=== PATIENT | male | born 1990 | race Two or more races ===

== ENCOUNTER 2017-11-09 21:06 | Emergency (ER) | payer BC ==
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
[2017-11-09] MEDS ORDERED: Lidocaine 1% 20 ML MDV INJECT ONE (22:29)
[2017-11-09] MEDS ORDERED: Lidocaine 1% 20 ML MDV ONE (22:30)
--- NOTE | 2017-11-11 11:53 | CR ---
EXAM DATE: 11/09/17 PATIENT'S AGE: 27 Patient: IGGY NOVAK Facility: [place], [place] Site . Site : 1992 Study: XRay Extremity Left hand [id number]/[id number] 9:46:23 PM Ordering Physician: Doctor Flowers Final Report: Indication: Pain, fishing pellet in hand Technique: Two views left hand Comparison: None Findings: Bones: Alignment is normal. No fractures or bone lesions. Joint spaces: Unremarkable. Soft tissues: There is a 0.6 x 0.4 cm metallic foreign body within the volar soft tissues of the hand at the level of the 3rd proximal phalanx. Impression: Metallic foreign body within the soft tissues of the 3rd finger. No fracture or subluxation. Dictated by Sylvie Reese MD @ Nov 09 2017 10:30PM (Electronic Signature) Report Signed by Proxy. SUSANA
== END 2017-11-09 23:30 | disposition home or self-care (01) ==
LOC: MW.ED 21:06
DX: S61.442A Puncture wound with foreign body of left hand, initial encounter (principal); W34.010A Accidental discharge of airgun, initial encounter; Y93.89 Activity, other specified
CPT/HCPCS: 73120-26-LT; 73120-LT; 99283

== ENCOUNTER 2018-11-04 21:34 | Emergency (ER) | payer BC ==
--- NOTE | 2018-11-04 22:03 | EDM.PDOC ---
ED HPI GENERAL MEDICAL PROBLEM - General Chief Complaint: ENT Problem Stated Complaint: PAIN & HEARING IN LT EAR Time Seen by Provider: 11/04/18 22:00 Source of Information: Reports: Patient - History of Present Illness INITIAL COMMENTS - FREE TEXT/NARRATIVE: HISTORY AND PHYSICAL: History of present illness: []Patient presents with hearing loss and discomfort in the left ear after cleaning his ears no actual pain is more of an aware sensation No other symptoms such as fever nausea vomiting diarrhea constipation chest pain shortness breath headache dizziness palpitation about a urine symptoms Review of systems: As per history of present illness and below otherwise all systems reviewed and negative. Past medical history: As per history of present illness and as reviewed below otherwise noncontributory. Surgical history: As per history of present illness and as reviewed below otherwise noncontributory. Social history: No reported history of drug or alcohol abuse. Family history: As per history of present illness and as reviewed below otherwise noncontributory. Physical exam: HEENT: Atraumatic, normocephalic, pupils reactive, negative for conjunctival pallor or scleral icterus, mucous membranes moist, throat clear, neck supple, nontender, trachea midline. Her canal is occluded with cerumen Lungs: Clear to auscultation, breath sounds equal bilaterally, chest nontender. Heart: S1S2, regular, negative for clicks, rubs, or JVD. Abdomen: Soft, nondistended, nontender. Negative for masses or hepatosplenomegaly. Negative for costovertebral tenderness. Pelvis: Stable nontender. Genitourinary: Deferred. Rectal: Deferred. Extremities: Atraumatic, negative for cords or calf pain. Neurovascular unremarkable. Neuro: Awake, alert, oriented. Cranial nerves II through XII unremarkable. Cerebellum unremarkable. Motor and sensory unremarkable throughout. Exam nonfocal. Diagnostics: [] Therapeutics: debrox drops] Impression: []Left ear canal occlusion Definitive disposition and diagnosis as appropriate pending reevaluation and review of above. left ear Pain Score (Numeric/FACES): 5 - Related Data Allergies Allergy/AdvReac Type Severity Reaction Status Date / Time No Known Allergies Allergy Verified 11/04/18 21:48 Home Meds: Home Meds . [No Known Home Meds] 11/09/17 [History] Past Medical History - Past Health History Medical/Surgical History: Denies Medical/Surgical History HEENT History: Reports: None Cardiovascular History: Reports: None Respiratory History: Reports: None Gastrointestinal History: Reports: None Genitourinary History: Reports: None Musculoskeletal History: Reports: None Neurological History: Reports: None Psychiatric History: Reports: Bipolar Endocrine/Metabolic History: Reports: None Hematologic History: Reports: None Immunologic History: Reports: None Oncologic (Cancer) History: Reports: None Dermatologic History: Reports: None - Infectious Disease History Infectious Disease History: Reports: None - Past Surgical History Head Surgeries/Procedures: Reports: None Social & Family History - Family History Family Medical History: Noncontributory - Tobacco Use Smoking Status *Q: Never Smoker - Caffeine Use Caffeine Use: Reports: Energy Drinks - Recreational Drug Use Recreational Drug Use: No ED ROS GENERAL - Review of Systems Review Of Systems: See Below ED EXAM, GENERAL - Physical Exam Exam: See Below Course - Vital Signs Last Recorded V/S: Last Vital Signs Temp 97.1 F 11/04/18 21:48 Pulse 90 11/04/18 21:48 Resp 18 11/04/18 21:48 BP 132/83 11/04/18 21:48 Pulse Ox 98 11/04/18 21:48 Departure - Departure Time of Disposition: 22:01 Disposition: Home, Self-Care 01 Condition: Good Clinical Impression: Cerumen impaction - Discharge Information Referrals: PCP,None [Primary Care Provider] - Additional Instructions: Debrocs/docusate drops as discussed return if symptoms persist or worsen follow up with primary care as needed [facility] [address] [place] [address] The following information is given to patients seen in the emergency department who are being discharged to home. This information is to outline your options for follow-up care. We provide all patients seen in our emergency department with a follow-up referral. The need for follow-up, as well as the timing and circumstances, are variable depending upon the specifics of your emergency department visit. If you don't have a primary care physician on staff, we will provide you with a referral. We always advise you to contact your personal physician following an emergency department visit to inform them of the circumstance of the visit and for follow-up with them and/or the need for any referrals to a consulting specialist. The emergency department will also refer you to a specialist when appropriate. This referral assures that you have the opportunity for follow-up care with a specialist. All of these measure are taken in an effort to provide you with optimal care, which includes your follow-up. Under all circumstances we always encourage you to contact your private physician who remains a resource for coordinating your care. When calling for follow-up care, please make the office aware that this follow-up is from your recent emergency room visit. If for any reason you are refused follow-up, please contact the [facility] emergency department at and asked to speak to the emergency department charge nurse.
== END 2018-11-04 22:09 | disposition home or self-care (01) ==
LOC: MW.ED 21:34
DX: H61.22 Impacted cerumen, left ear (principal)
CPT/HCPCS: 99282

== ENCOUNTER 2021-01-15 15:52 | Emergency (ER) | payer BC ==
[2021-01-15] MEDS ORDERED: Sodium Chloride 0.9% 10 ML Syringe FLUSH PRN (16:44)
[2021-01-15] MEDS ORDERED: Sodium Chloride 0.9% 2.5 ML Syringe FLUSH PRN (16:44)
[2021-01-15 17:35] LABS: BLOOD UREA NITROGEN,BUN 11 mg/dL (7.0-18.0); CARBON DIOXIDE,CO2 26.1 mmol/L (21.0-32.0); CHLORIDE,CL 103 mmol/L (98-107); GLUCOSE RANDOM 85 mg/dL (74-106); LIPASE 118 U/L (73-393); POTASSIUM,K 3.7 mmol/L (3.5-5.1); SODIUM,NA 140 mmol/L (136-148)
[2021-01-15] MEDS ORDERED: Iopamidol 755 MG/ML 500 ML Multipack Bottle IVPUSH ONE (18:05)
--- NOTE | 2021-01-15 19:10 | CT ---
For Patients: As a result of the Century Cures Act, medical imaging exams and procedure reports are released immediately into your electronic medical record. You may view this report before your referring provider. If you have questions, please contact your health care provider. Indication: Umbilical pain for 1 week. Painful urination Technique: Contrast enhanced CT abdomen and pelvis with 100 mL Isovue 370 Comparison: No comparison Findings: Heart normal. Possible mildly enlarged/prominent right hilar and subcarinal lymph nodes only partially seen. There is no pericardial effusion. One centimeters circumscribed nodule anterior right middle lobe with central tiny density. This probably reflects a granuloma there is adjacent tiny micro nodules which this could be related to granulomatous process. Minimal ground-glass opacities seen near the right hilum that is only partially seen on the very 1st image. Mild right pleural thickening series 201, image 6. Fatty liver. Gallbladder pancreas adrenal glands spleen appears unremarkable normal caliber abdominal aorta. Symmetric enhancement both kidneys no hydronephrosis. Small fat containing umbilical hernia. Normal appendix. Urinary bladder unremarkable. Fat containing inguinal hernias. Prostate gland unremarkable urinary bladder unremarkable. The bowel appears unremarkable. No suspicious bony lesions. Impression: 1. No acute findings in the abdomen or pelvis. Normal appendix. Kidneys appear unremarkable. 2. Circumscribed one centimeter nodule anterior right middle lobe with a tiny density centrally with adjacent tiny micro nodules this probably reflects a developing granuloma/granulomatous process follow-up is recommended. Additionally possible minimal ground-glass opacity seen near the right hilum this is only partially seen on the very 1st image could be related to infectious inflammatory process. There is possible prominent/mildly enlarged subcarinal right hilar lymph node that is only partially seen. Would recommend follow-up chest CT imaging. Please note that all CT scans at this facility use dose modulation, iterative reconstruction, and/or weight-based dosing when appropriate to reduce radiation dose to as low as reasonably achievable. Dictated by Grace Messer MD @ 01/15/2021 7:01:32 PM (Electronically Signed)
[2021-01-15] MEDS ORDERED: cefTRIAXone 1 GM in Premix Bag 1 BAG IV ONE (19:25)
--- NOTE | 2021-01-15 19:31 | EDM.PDOC ---
ED HPI GENERAL MEDICAL PROBLEM - General Chief Complaint: Genitourinary Problem Stated Complaint: ABDOMINA; PAIN MAYBE UTI Time Seen by Provider: 01/15/21 16:06 Source of Information: Reports: Patient History Limitations: Reports: No Limitations - History of Present Illness INITIAL COMMENTS - FREE TEXT/NARRATIVE: HISTORY AND PHYSICAL: History of present illness: Patient is a 30-year-old male who presents to the ED today with concern of lower abdominal pain and urinary frequency with only urinating small amounts over the past several days. Patient states that the last time he ever had symptoms like this, he was diagnosed with gonorrhea. However, patient states that at that time, he was also having penile drainage which she is not having today. Patient states that he is confused because he is in a 4-year marriage in a monogamous relationship and states that he has not been unfaithful and does not believe his to be unfaithful but states that the symptoms are somewhat similar. Patient states that he did not have abdominal pain when he had gonorrhea but did have a urinary frequency which is why he was concerned. Patient states the only partner he has had in 4 years is his . Patient states that he has had the symptoms for approximately 1 week and states that they have not worsened over a week just have not improved. Patient denies any abdominal surgeries or any other health history. Patient denies fever, chills, chest pain, shortness of breath, or cough. Denies headache, neck stiff ness, change in vision, syncope, or near syncope. Denies nausea, vomiting, diarrhea, constipation, or dysuria. Has not noted any blood in urine or stool. Patient has been eating and drinking appropriately. Patient denies any testicular or scrotal tenderness or penile drainage. Review of systems: As per history of present illness and below otherwise all systems reviewed and negative. Past medical history: As per history of present illness and as reviewed below otherwise noncontributory. Surgical history: As per history of present illness and as reviewed below otherwise noncontributory. Social history: See social history for further information Family history: As per history of present illness and as reviewed below otherwise noncontributory. Physical exam: General: Patient is alert, oriented, and in no acute distress. Patient laying comfortably on exam table. Vitals stable and reviewed by me. HEENT: Atraumatic, normocephalic, pupils equal and reactive bilaterally, negative for conjunctival pallor or scleral icterus, mucous membranes moist, TMs normal bilaterally, throat clear, neck supple, nontender, trachea midline. No drooling or trismus noted. No meningeal signs. No hot potato voice noted. Lungs: Clear to auscultation, breath sounds equal bilaterally, chest nontender. Heart: S1S2, regular rate and rhythm without overt murmur Abdomen: Soft, nondistended, moderate right and left lower quadrant tenderness with guarding, negative rebound, negative Weiss sign. Negative for masses or hepatosplenomegaly. Negative for costovertebral tenderness. Pelvis: Stable nontender. Genitourinary: Deferred. Rectal: Deferred. Skin: Intact, warm, dry. No lesions or rashes noted. Extremities: Atraumatic, negative for cords or calf pain. Neurovascular unremarkable. Neuro: Awake, alert, oriented. Cranial nerves II through XII unremarkable. Cerebellum unremarkable. Motor and sensory unremarkable throughout. Exam nonfocal. Notes: Patient is a 30-year-old male who presents emergency room today secondary to lower abdominal pain and urinary frequency x1 week. Upon arrival to the ED, patient is vitally stable and well-appearing on exam but does have moderate right and left lower quadrant tenderness of the abdomen with guarding on exam. Will obtain urinalysis, routine lab work with intention of obtaining abdominal pelvic CT scan with contrast. CBC shows a mild leukocytosis of 11.96, otherwise mild derangements of CBC unremarkable. CMP mild derangements unremarkable. Lipase within normal limits. Urinalysis shows 0-2 red blood cells, 0-2 white blood cells, rare bacteria, trace leukocyte esterase. Gonorrhea and Chlamydia pending as this is a send out lab. Abdominal pelvic CT scan with contrast shows no acute findings in the abdomen or pelvis. Normal appendix. Kidneys unremarkable. Circumscribed 1 cm nodule anterior right middle lobe with a tiny density centrally with adjacent tiny micronodules this probably reflects a developing granuloma process follow-up recommended. Possible minimal groundglass opacity seen near the right hilum, this is only partially seen which could be infectious or inflammatory. This is possibly prominent/mildly enlarged subcarinal right hilar lymph node that is only partially seen. Patient does not express any chest pain, shortness of breath, or cough today. Incidental findings of imaging today discussed with patient and importance to have this evaluated further by his primary care provider. Upon reevaluation of patient, he remains vitally stable and comfortable throughout stay in ED. I did offer to treat patient empirically for possible gonorrhea or chlamydia infection given this is a send out lab and his stated symptoms resembling prior gonorrhea infection. He is agreeable to treatment for possible STD. Strict return precautions thoroughly discussed with patient. Discussed importance for follow-up with a primary care provider. Voices understanding and is agreeable to plan of care. Denies any further questions or concerns at this time. Diagnostics: CBC, CMP, UA, lipase, abdominal pelvic CT with contrast, gonorrhea and chlamydia Therapeutics: Rocephin Prescription: Doxycycline Impression: Lower abdominal pain, unspecified Urinary frequency Plan: 1. Take medication as prescribed. You can alternate ibuprofen and Tylenol as directed for pain and discomfort. 2. Follow-up with your primary care provider as discussed. Return to the ED as needed and as discussed. 3. Refrain from sexual activity until all labs today have resulted. You can receive full STD testing with a primary care provider or at the [facility]. Definitive disposition and diagnosis as appropriate pending reevaluation and review of above. - Related Data Allergies Allergy/AdvReac Type Severity Reaction Status Date / Time No Known Allergies Allergy Verified 01/15/21 16:20 Home Meds: Home Meds Doxycycline [Vibramycin] 100 mg PO BID 7 Days #14 cap 01/15/21 [Rx] Past Medical History - Past Health History Medical/Surgical History: Denies Medical/Surgical History HEENT History: Reports: None Cardiovascular History: Reports: None Respiratory History: Reports: None Gastrointestinal History: Reports: None Genitourinary History: Reports: None Musculoskeletal History: Reports: None Neurological History: Reports: None Psychiatric History: Reports: Bipolar Endocrine/Metabolic History: Reports: None Hematologic History: Reports: None Immunologic History: Reports: None Oncologic (Cancer) History: Reports: None Dermatologic History: Reports: None - Infectious Disease History Infectious Disease History: Reports: None - Past Surgical History Head Surgeries/Procedures: Reports: None Social & Family History - Family History Family Medical History: No Pertinent Family History - Tobacco Use Tobacco Use Status *Q: Never Tobacco User - Caffeine Use Caffeine Use: Reports: Energy Drinks - Recreational Drug Use Recreational Drug Use: No ED ROS GENERAL - Review of Systems Review Of Systems: Comprehensive ROS is negative, except as noted in HPI. ED EXAM, GENERAL - Physical Exam Exam: See Below (See dictation) Course - Vital Signs Last Recorded V/S: Last Vital Signs Temp 98 F 01/15/21 16:16 Pulse 79 01/15/21 19:42 Resp 18 01/15/21 19:42 BP 132/75 01/15/21 19:42 Pulse Ox 97 01/15/21 19:42 - Orders/Labs/Meds Orders: Active Orders 24 hr Category Date Time Status CHLAMYDIA AND GONORRHEA BY TMA Stat Lab 01/15/21 16:14 Received CULTURE URINE [MREF] Stat Lab 01/15/21 19:25 Received Saline Lock Insert [OM.PC] Stat Oth 01/15/21 16:44 Ordered Labs: Laboratory Tests 01/15/21 01/15/21 01/15/21 Range/Units 16:14 17:01 17:01 WBC 11.96 H (4.0-11.0) K/uL RBC 5.14 (4.50-5.90) M/uL Hgb 14.5 (13.0-17.0) g/dL Hct 42.4 (38.0-50.0) % MCV 82.5 (80.0-98.0) fL MCH 28.2 (27.0-32.0) pg MCHC 34.2 (31.0-37.0) g/dL RDW Std Deviation 42.1 (28.0-62.0) fl RDW Coeff of Robbin 14 (11.0-15.0) % Plt Count 255 (150-400) K/uL MPV 10.70 (7.40-12.00) fL Neut % (Auto) 64.5 (48.0-80.0) % Lymph % (Auto) 28.5 (16.0-40.0) % [place] % (Auto) 5.9 (0.0-15.0) % Eos % (Auto) 0.8 (0.0-7.0) % Baso % (Auto) 0.3 (0.0-1.5) % Neut # (Auto) 7.7 H (1.4-5.7) K/uL Lymph # (Auto) 3.4 H (0.6-2.4) K/uL [place] # (Auto) 0.7 (0.0-0.8) K/uL Eos # (Auto) 0.1 (0.0-0.7) K/uL Baso # (Auto) 0.0 (0.0-0.1) K/uL Nucleated RBC % 0.0 /100WBC Nucleated RBCs # 0 K/uL Sodium 140 (136-148) mmol/L Potassium 3.7 (3.5-5.1) mmol/L Chloride 103 (98-107) mmol/L Carbon Dioxide 26.1 (21.0-32.0) mmol/L BUN 11 (7.0-18.0) mg/dL Creatinine 1.1 (0.8-1.3) mg/dL Est Cr Clr Drug Dosing 106.48 mL/min Estimated GFR (MDRD) > 60.0 ml/min Glucose 85 (74-106) mg/dL Calcium 8.9 (8.5-10.1) mg/dL Total Bilirubin 0.3 (0.2-1.0) mg/dL AST 25 (15-37) IU/L ALT 42 (14-63) IU/L Alkaline Phosphatase 117 H (46-116) U/L Total Protein 8.3 H (6.4-8.2) g/dL Albumin 3.9 (3.4-5.0) g/dL Globulin 4.4 H (2.6-4.0) g/dL Albumin/Globulin Ratio 0.9 (0.9-1.6) Lipase 118 (73-393) U/L Urine Color YELLOW Urine Appearance CLEAR Urine pH 6.5 (5.0-8.0) Ur Specific Jackson 1.020 (1.001-1.035) Urine Protein NEGATIVE (NEGATIVE) mg/dL Urine Glucose (UA) NEGATIVE (NEGATIVE) mg/dL Urine Ketones NEGATIVE (NEGATIVE) mg/dL Urine Occult Blood TRACE-INTACT H (NEGATIVE) Urine Nitrite NEGATIVE (NEGATIVE) Urine Bilirubin NEGATIVE (NEGATIVE) Urine Urobilinogen 0.2 (<2.0) EU/dL Ur Leukocyte Esterase TRACE H (NEGATIVE) Urine RBC 0-2 (0-2/HPF) Urine WBC 0-2 (0-5/HPF) Ur Epithelial Cells NOT SEEN (NONE-FEW) Amorphous Sediment RARE (NEGATIVE) Urine Bacteria RARE (NEGATIVE) Urine Mucus RARE (NONE-MOD) Meds: Medications Discontinued Medications Generic Name Dose Route Start Last Admin Trade Name Freq PRN Reason Stop Dose Admin Ceftriaxone Sodium/Dextrose 1 50 mls @ 100 mls/hr 01/15/21 19:25 01/15/21 19:30 gm/ Premix IV 01/15/21 19:54 100 mls/hr ONETIME ONE Administration Iopamidol 100 ml 01/15/21 18:05 01/15/21 18:05 Iopamidol 755 Mg/Ml 500 Ml Multipack Bottle IVPUSH 01/15/21 18:06 100 ml ONETIME ONE Administration Sodium Chloride 10 ml 01/15/21 16:44 01/15/21 17:03 Sodium Chloride 0.9% 10 Ml Syringe FLUSH 10 ml ASDIRECTED PRN Administration Keep Vein Open Sodium Chloride 2.5 ml 01/15/21 16:44 01/15/21 17:03 Sodium Chloride 0.9% 2.5 Ml Syringe FLUSH 2.5 ml ASDIRECTED PRN Administration Keep Vein Open Departure - Departure Time of Disposition: 19:26 Disposition: Home, Self-Care 01 Clinical Impression: Urinary frequency, Lower abdominal pain - Discharge Information Prescriptions: Doxycycline [Vibramycin] 100 mg PO BID 7 Days #14 cap Instructions: Abdominal Pain, Adult, [id number], Urinary Frequency, Adult Referrals: PCP,None [Primary Care Provider] - Forms: ED Department Discharge Additional Instructions: The following information is given to patients seen in the emergency department who are being discharged to home. This information is to outline your options for follow-up care. We provide all patients seen in our emergency department with a follow-up referral. The need for follow-up, as well as the timing and circumstances, are variable depending upon the specifics of your emergency department visit. If you don't have a primary care physician on staff, we will provide you with a referral. We always advise you to contact your personal physician following an emergency department visit to inform them of the circumstance of the visit and for follow-up with them and/or the need for any referrals to a consulting specialist. The emergency department will also refer you to a specialist when appropriate. This referral assures that you have the opportunity for follow-up care with a specialist. All of these measure are taken in an effort to provide you with optimal care, which includes your follow-up. Under all circumstances we always encourage you to contact your private physician who remains a resource for coordinating your care. When calling for follow-up care, please make the office aware that this follow-up is from your recent emergency room visit. If for any reason you are refused follow-up, please contact the [facility] Emergency Department at and asked to speak to the emergency department charge nurse. [facility] [address] [place] [address] [facility] [address] [place] [address] [facility] [address] [place] [address] 1. Take medication as prescribed. You can alternate ibuprofen and Tylenol as directed for pain and discomfort. 2. Follow-up with your primary care provider as discussed. Return to the ED as needed and as discussed. 3. Refrain from sexual activity until all labs today have resulted. You can receive full STD testing with a primary care provider or at the [facility]. Sepsis Event Note (ED) - Evaluation Sepsis Screening Result: No Definite Risk - My Orders Last 24 Hours: My Active Orders 01/15/21 16:14 CHLAMYDIA AND GONORRHEA BY TMA Stat 01/15/21 16:44 Saline Lock Insert [OM.PC] Stat 01/15/21 19:25 CULTURE URINE [MREF] Stat - Assessment/Plan Last 24 Hours: My Active Orders 01/15/21 16:14 CHLAMYDIA AND GONORRHEA BY TMA Stat 01/15/21 16:44 Saline Lock Insert [OM.PC] Stat 01/15/21 19:25 CULTURE URINE [MREF] Stat
[2021-01-17 12:11] LABS: C.TRACHOMATIS BY TMA Negative (Negative); N.GONORRHOEAE BY TMA Negative (Negative)
== END 2021-01-15 19:43 | disposition home or self-care (01) ==
LOC: MW.ED 15:52
DX: R10.32 Left lower quadrant pain (principal); R35.0 Frequency of micturition
CPT/HCPCS: 36415; 74177; 80053; 81001; 83690; 85025; 87086; 87491; 87591; 96374; 99284; J0696; Q9967

== ENCOUNTER 2021-06-17 15:48 | Emergency (ER) | payer BC | END 2021-06-17 16:40 | disposition left against medical advice (07) | LOC: MW.ED 15:48 | DX: Z53.21 Procedure and treatment not carried out due to patient leaving prior to being seen by health care provider (principal) ==

== ENCOUNTER 2021-06-26 20:01 | Emergency (ER) | payer BC ==
[2021-06-26] MEDS ORDERED: Sodium Chloride 0.9% 1,000 ML IV ONE (20:33)
--- NOTE | 2021-06-26 20:36 | EDM.PDOC ---
ED HPI GENERAL MEDICAL PROBLEM - General Chief Complaint: Respiratory Problem Stated Complaint: COVID POS, DIFFICULTY BREATHING Time Seen by Provider: 06/26/21 20:11 Source of Information: Reports: Patient History Limitations: Reports: No Limitations - History of Present Illness INITIAL COMMENTS - FREE TEXT/NARRATIVE: HISTORY AND PHYSICAL: History of present illness: Patient is a 31-year-old male who presents to the emergency room with concerns of dehydration. Patient was diagnosed with COVID-19 recently and since has had profuse sweating, body aches and decreased urinary output. Patient states he is concerned he is dehydrated. Patient denies any change in vision, syncope or near syncope. Denies any chest pain, shortness of breath, abdominal pain, nausea, vomiting, diarrhea, constipation or dysuria. Has not noted any blood in urine or stool. Not vaccinated for COVID-19 Review of systems: As per history of present illness and below otherwise all systems reviewed and negative. Past medical history: As per history of present illness and as reviewed below otherwise noncontributory. Surgical history: As per history of present illness and as reviewed below otherwise noncontributory. Social history: See social history for further information Family history: As per history of present illness and as reviewed below otherwise noncontributory. Physical exam: General: Well developed and well nourished 31 year old male. Alert and orientated x 3. Nontoxic in appearance and in no acute distress. Vital signs are stable and have been reviewed by me. Nursing notes were reviewed. HEENT: Atraumatic, normocephalic, pupils equal and reactive bilaterally, negative for conjunctival pallor or scleral icterus, mucous membranes dry, TMs normal bilaterally, throat clear, neck supple, nontender, trachea midline. No drooling or trismus noted. No meningeal signs. No hot potato voice noted. Lungs: Clear to auscultation bilaterally. No wheezes, rales, or rhonchi. Chest nontender. Normal work of breathing, no accessory muscles used. Heart: S1S2, regular rate and rhythm without overt murmur, gallops, or rubs. No JVD. No peripheral edema Abdomen: Soft, nondistended, nontender. Normoactive bowel sounds. Negative for masses or costovertebral tenderness. Skin: Intact, warm, dry. No lesions or rashes noted. Hematologic: No petechiae or purpra. Mucosa appropriate color and normal nail bed color and refill. Extremities: Atraumatic, moves all extremities per self without difficulty or deficits, negative for cords or calf pain. Neurovascular unremarkable. Neuro: Awake, alert, oriented. Cranial nerves II through XII unremarkable. Cerebellum unremarkable. Motor and sensory unremarkable throughout. Exam nonfocal. Psychiatric: Mood and affect are appropriate. Normal thought process. Answering questions appropriately. Please note that the patient was seen and evaluated during the 2019 SARS-CoV-2 novel coronavirus pandemic period. Community viral transmission is ongoing at time of this encounter and the emergency department is operating under pandemic response procedures. Medical Decision Making: Patient is a 31-year-old male who presents to the emergency room with known COVID-19 and concerned he is dehydrated. Physical exam is unremarkable, does appear clinically dehydrated. Vital signs are stable. We will do basic lab work due to stated complaints. No concerning findings on labs. I have talked with the patient about today's findings, in addition to providing specific details for plan of care. Reassessment at the time of disposition demonstrates that the patient is in no acute distress. The patient is stable for discharge, counseling was provided and we discussed in great detail signs and symptoms that would prompt them to return to the Emergency Department. Medication, follow up and supportive care measures were reviewed and discussed. Voices understanding and is agreeable to plan of care. Denies any further questions or concerns at this time. Diagnostics: CBC, BMP, UA Therapeutics: IV fluid Prescription: None Impression: COVID-19 Plan: 1. You were evaluated today on an emergent basis. Your lab work is unremarkable. Your vital signs and oxygen saturation are well enough that you were able to monitor your symptoms at home. Continue to monitor for trouble breathing, new confusion or inability to arouse, bluish lips or face or any of the other symptoms we discussed -if this occurs please return to the emergency room immediately. 2. Please self quarantine until cleared by [facility] Department. Inform any persons that you have been in contact with since you started becoming symptomatic that you have tested positive; they should be made aware and take the appropriate steps as needed. 3. You can take NyQuil during the evening to help get a restful night sleep. May alternate Tylenol and ibuprofen as needed for pain and fever management. 4. [facility] will be calling you and following up with you. The [place] COVID 19 Hotline phone number , They are open Friday - Friday 7am - 7pm. Follow up with your primary care provider for re-evaluation as directed. Definitive disposition and diagnosis as appropriate pending reevaluation and review of above. generalized Pain Score (Numeric/FACES): 5 - Related Data Allergies Allergy/AdvReac Type Severity Reaction Status Date / Time No Known Allergies Allergy Verified 06/26/21 20:19 Home Meds: Home Meds . [No Known Home Meds] 06/26/21 [History] Past Medical History - Past Health History Medical/Surgical History: Denies Medical/Surgical History HEENT History: Reports: None Cardiovascular History: Reports: None Respiratory History: Reports: None Gastrointestinal History: Reports: None Genitourinary History: Reports: None Musculoskeletal History: Reports: None Neurological History: Reports: None Psychiatric History: Reports: Bipolar Endocrine/Metabolic History: Reports: None Insulin Pump Model and Safety Aide: N/A Hematologic History: Reports: None Immunologic History: Reports: None Oncologic (Cancer) History: Reports: None Dermatologic History: Reports: None - Infectious Disease History Infectious Disease History: Reports: None - Past Surgical History Head Surgeries/Procedures: Reports: None Social & Family History - Family History Family Medical History: No Pertinent Family History - Caffeine Use Caffeine Use: Reports: None - Recreational Drug Use Recreational Drug Use: No ED ROS GENERAL - Review of Systems Review Of Systems: Comprehensive ROS is negative, except as noted in HPI. ED EXAM, GENERAL - Physical Exam Exam: See Below (See dictation) Course - Vital Signs Last Recorded V/S: Last Vital Signs Temp 100.9 F H 06/26/21 20:10 Pulse 102 H 06/26/21 20:10 Resp 20 06/26/21 20:10 BP 129/75 06/26/21 20:10 Pulse Ox 93 L 06/26/21 20:10 - Orders/Labs/Meds Orders: Active Orders 24 hr Category Date Time Status Chest 1V Frontal [CR] Stat Exams 06/26/21 20:09 Taken BASIC METABOLIC PANEL,BMP [CHEM] Stat Lab 06/26/21 21:05 Received Sodium Chloride 0.9% [Normal Saline] 1,000 ml Med 06/26/21 20:33 Active IV STAT Medication Orders Sodium Chloride (Normal Saline) 1,000 mls @ 999 mls/hr IV STAT ONE Stop: 06/26/21 21:33 Last Admin: 06/26/21 21:12 Dose: 999 mls/hr Documented by: JAGUAR Labs: Laboratory Tests 06/26/21 06/26/21 Range/Units 20:37 21:05 WBC 7.50 (4.0-11.0) K/uL RBC 5.06 (4.50-5.90) M/uL Hgb 14.3 (13.0-17.0) g/dL Hct 40.7 (38.0-50.0) % MCV 80.4 (80.0-98.0) fL MCH 28.3 (27.0-32.0) pg MCHC 35.1 (31.0-37.0) g/dL RDW Std Deviation 41.3 (28.0-62.0) fl RDW Coeff of Robbin 14 (11.0-15.0) % Plt Count 152 (150-400) K/uL MPV 10.60 (7.40-12.00) fL Neut % (Auto) 72.1 (48.0-80.0) % Lymph % (Auto) 22.4 (16.0-40.0) % Eagle % (Auto) 5.5 (0.0-15.0) % Eos % (Auto) 0.0 (0.0-7.0) % Baso % (Auto) 0.0 (0.0-1.5) % Neut # (Auto) 5.4 (1.4-5.7) K/uL Lymph # (Auto) 1.7 (0.6-2.4) K/uL Eagle # (Auto) 0.4 (0.0-0.8) K/uL Eos # (Auto) 0.0 (0.0-0.7) K/uL Baso # (Auto) 0.0 (0.0-0.1) K/uL Nucleated RBC % 0.0 /100WBC Nucleated RBCs # 0 K/uL Urine Color YELLOW Urine Appearance HAZY Urine pH 6.5 (5.0-8.0) Ur Specific [place] 1.010 (1.001-1.035) Urine Protein TRACE H (NEGATIVE) mg/dL Urine Glucose (UA) NEGATIVE (NEGATIVE) mg/dL Urine Ketones 40 H (NEGATIVE) mg/dL Urine Occult Blood TRACE-INTACT H (NEGATIVE) Urine Nitrite NEGATIVE (NEGATIVE) Urine Bilirubin NEGATIVE (NEGATIVE) Urine Urobilinogen 1.0 (<2.0) EU/dL Ur Leukocyte Esterase NEGATIVE (NEGATIVE) Urine RBC 0-1 (0-2/HPF) Urine WBC 0-1 (0-5/HPF) Ur Epithelial Cells RARE (NONE-FEW) Urine Bacteria RARE (NEGATIVE) Meds: Medications Generic Name Dose Route Start Last Admin Trade Name Freq PRN Reason Stop Dose Admin Sodium Chloride 1,000 mls @ 999 mls/hr 06/26/21 20:33 06/26/21 21:12 Normal Saline IV 06/26/21 21:33 999 mls/hr STAT ONE Administration Departure - Departure Time of Disposition: 21:19 Disposition: Home, Self-Care 01 Clinical Impression: COVID-19 - Discharge Information Instructions: 10 Things You Can Do to Manage Your COVID-19 Symptoms at Home - [facility] (01/19/2021) Forms: ED Department Discharge Additional Instructions: The following information is given to patients seen in the emergency department who are being discharged to home. This information is to outline your options for follow-up care. We provide all patients seen in our emergency department with a follow-up referral. The need for follow-up, as well as the timing and circumstances, are variable depending upon the specifics of your emergency department visit. If you don't have a primary care physician on staff, we will provide you with a referral. We always advise you to contact your personal physician following an emergency department visit to inform them of the circumstance of the visit and for follow-up with them and/or the need for any referrals to a consulting specialist. The emergency department will also refer you to a specialist when appropriate. This referral assures that you have the opportunity for follow-up care with a specialist. All of these measure are taken in an effort to provide you with optimal care, which includes your follow-up. Under all circumstances we always encourage you to contact your private physician who remains a resource for coordinating your care. When calling for follow-up care, please make the office aware that this follow-up is from your recent emergency room visit. If for any reason you are refused follow-up, please contact the [facility] Emergency Department at and asked to speak to the emergency department charge nurse. [facility] [address] [place] [address] [facility] [address] [place] [address] Thank you for choosing the [facility] emergency department in [place] for your medical needs today. It was a pleasure caring for you. Today you were seen in the emergency department for symptoms related to COVID 19 1. You were evaluated today on an emergent basis. Your lab work is unremarkable. Your vital signs and oxygen saturation are well enough that you w ere able to monitor your symptoms at home. Continue to monitor for trouble breathing, new confusion or inability to arouse, bluish lips or face or any of the other symptoms we discussed -if this occurs please return to the emergency room immediately. 2. Please self quarantine until cleared by [facility] Department. Inform any persons that you have been in contact with since you started becoming symptomatic that you have tested positive; they should be made aware and take the appropriate steps as needed. 3. You can take NyQuil during the evening to help get a restful night sleep. May alternate Tylenol and ibuprofen as needed for pain and fever management. 4. [facility] will be calling you and following up with you. The [place] COVID 19 Hotline phone number , They are open Friday - Friday 7am - 7pm. Follow up with your primary care provider for re-evaluation as directed. Sepsis Event Note (ED) - Evaluation Sepsis Screening Result: No Definite Risk - Focused Exam Vital Signs: Vital Signs Temp Pulse Resp BP Pulse Ox 06/26/21 20:10 100.9 F H 102 H 20 129/75 93 L - My Orders Last 24 Hours: My Active Orders 06/26/21 20:09 Chest 1V Frontal [CR] Stat 06/26/21 20:33 Sodium Chloride 0.9% [Normal Saline] 1,000 ml IV STAT 06/26/21 21:05 BASIC METABOLIC PANEL,BMP [CHEM] Stat - Assessment/Plan Last 24 Hours: My Active Orders 06/26/21 20:09 Chest 1V Frontal [CR] Stat 06/26/21 20:33 Sodium Chloride 0.9% [Normal Saline] 1,000 ml IV STAT 06/26/21 21:05 BASIC METABOLIC PANEL,BMP [CHEM] Stat
[2021-06-26 21:39] LABS: BLOOD UREA NITROGEN,BUN 9 mg/dL (7.0-18.0); CARBON DIOXIDE,CO2 22.6 mmol/L (21.0-32.0); CHLORIDE,CL 98 mmol/L (98-107); GLUCOSE RANDOM 88 mg/dL (74-106); POTASSIUM,K 3.9 mmol/L (3.5-5.1); SODIUM,NA 134 mmol/L (136-148)
--- NOTE | 2021-06-26 21:43 | CR ---
Indication: Low lung volumes. Shortness of breath. Cough. Technique: Single-view of the chest. Comparison: None Findings: The heart is normal in size. Coarse interstitial opacities are identified bilaterally. No focal infiltrate, pleural effusion, or pneumothorax is identified. Impression: Increased interstitial opacities identified bilaterally. Dictated by Iris Fleming MD @ 06/26/2021 9:42:29 PM (Electronically Signed)
== END 2021-06-26 21:53 | disposition home or self-care (01) ==
LOC: MW.ED 20:01
DX: U07.1 COVID-19 (principal)
CPT/HCPCS: 36415; 71045; 80048; 81001; 85025; 99284; J7030